=== PATIENT | male | born 1995 | race Caucasian/White ===

== ENCOUNTER 2020-09-20 10:33 | Emergency (ER) | payer OTHER, SELFPAY ==
[2020-09-20 11:06] VITALS: BP 114/53; PULSE 86; RESP 16; TEMP 36.7; O2SAT 99; BMI 24.9
--- NOTE | 2020-09-20 11:09 | XR_ITS ---
EXAMINATION: XR CHEST CLINICAL INFORMATION: Covid Symptoms. COMPARISON: None TECHNIQUE: Frontal view of the chest was obtained. FINDINGS: No significant abnormality is noted involving the heart, lungs, mediastinum, bony thorax or soft tissues. XR/XR chest 1V IMPRESSION: Unremarkable chest examination.
--- NOTE | 2020-09-20 11:20 | ED_ITS ---
HPI - URI/Sore Throat General Chief Complaint: Upper Respiratory Symptoms <VINCE Goncalves Last Filed: 09/20/20 11:49> Stated Complaint: covid symptoms,chest pain <VINCE Goncalves Last Filed: 09/20/20 11:49> Time Seen by Provider: 09/20/20 11:09 <VINCE Goncalves Last Filed: 09/20/20 11:49> Source: patient <VINCE Goncalves Last Filed: 09/20/20 11:49> Mode of arrival: ambulatory <VINCE Goncalves Last Filed: 09/20/20 11:49> Limitations: no limitations <VINCE Goncalves Last Filed: 09/20/20 11:49> History of Present Illness HPI Narrative: 25yoM c PMHx of asthma presenting to the ED with complaints body aches, chills, sore throat, productive cough and shortness of breath with associated epigastric abdominal pain for the past 3 days worse today. Denies recent travel or sick contacts. Denies any other symptoms complaints or concerns at this ti me. <VINCE Goncalves Last Filed: 09/20/20 11:49> Related Data Home Medications: Previous Rx's Medication Instructions Recorded acetaminophen [Tylenol] 650 mg PO Q6H PRN #10 tab 09/20/20 albuterol sulfate 1 inh INHALATION QID PRN #8.5 g 09/20/20 azithromycin See Rx Instructions .ROUTE 09/20/20 .COMPLEX #3 tab cyclobenzaprine 10 mg PO TID PRN #10 tab 09/20/20 prednisone 40 mg PO DAILY 5 Days #10 tab NS 09/20/20 <VINCE Goncalves Last Filed: 09/20/20 11:49> Allergies/Adverse Reactions: Allergies Allergy/AdvReac Type Severity Reaction Status Date / Time No Known Allergies Allergy Unverified 08/05/20 16:34 <VINCE Goncalves Last Filed: 09/20/20 11:49> Review of Systems Review of Systems: Constitutional : No Fever, + Chills, No fatigue, No Malaise ENT/Mouth : + sore throat, No runny nose Eyes: No Discharge Cardiovascular : No Chest Pain, + SOB Respiratory : + Cough, + Sputum, No Wheezing, No Smoke Exposure, No Dyspnea Gastrointestinal : No Nausea, No Vomiting, No Diarrhea Genitourinary : No irregular bleeding, No Dysuria, No Urinary Frequency, No Hematuria, No Urinary Incontinence, No Urgency, No Flank Pain, Musculoskeletal : No Myalgia Skin : No rash Neuro : No Headache <VINCE Goncalves - Last Filed: 09/20/20 11:49> Yes all other systems are reviewed and are negative <VINCE Goncalves - Last Filed: 09/20/20 11:49> FORMERLY [facility] Past Medical History Attestation statement: The following information was validated with the patient. <VINCE Goncalves - Last Filed: 09/20/20 11:49> Medical History: Medical History Asthma <VINCE Goncalves - Last Filed: 09/20/20 11:49> Social History Social History: Social History Smoking Status: Current some day smoker Use of substances other than those prescribed or required for medical reasons: No Advance Directives: No Advance Directives Information Provided: No <VINCE Goncalves - Last Filed: 09/20/20 11:49> Physical Exam Vital Signs: Vital Signs: Vital Signs Temp Pulse Resp BP Pulse Ox 09/20/20 11:06 98.1 F 86 16 114/53 L 99 Body Mass Index 24.9 vital signs have been reviewed as normal and appeared to be correct. Blood pressure normal. Heart rate normal. Respiration rate normal. Temperature normal. Oxygen saturation normal. <VINCE Goncalves - Last Filed: 09/20/20 11:49> Vital Signs: Vital Signs Temp Pulse Resp BP Pulse Ox 09/20/20 11:06 98.1 F 86 16 114/53 L 99 Body Mass Index 24.9 <Adan Gifford MD - Last Filed: 10/01/20 01:21> Appearance: Alert. Oriented X3. No acute distress. Head: Normal external exam. Normocephalic. Eyes: PERRLA. EOMI. Conjunctiva and sclera normal. Eyelids normal. ENT: EAC normal. TM's Normal. Pharynx normal. Uvula midline. Moist mucous membranes. No trismus noted. No drooling noted. No muffled voice noted. Neck: Normal inspection. Neck supple. FROM. No meningeal signs. CVS: Normal heart rate and rhythm. Heart sound normal. No murmurs noted. Pulses normal throughout. Respiratory: No respiratory distress. Painless inspiration. Breath sounds normal. No wheezes/rales/rhonchi noted. Chest nontender. No accessory muscle usage noted or decreased air movement noted. Back: Full range of motion noted. Skin: Skin warm and dry. Normal skin color. Normal skin turgor. No rashes/lesions/lacerations noted. Extremities: Extremities exhibit normal range of motion. Extremities nontender. Neuro: Oriented X 3. No motor deficit. No sensory deficit. Reflexes normal. <VINCE Goncalves - Last Filed: 09/20/20 11:49> Course Course Course Narrative: 25yoM c PMHx of asthma presenting to the ED with complaints body aches, chills, sore throat, productive cough and shortness of breath with associated epigastric abdominal pain for the past 3 days worse today. - We will obtain a COVID swab and a chest x-ray and if within normal limits the chest x-ray will DC home with antibiotics and symptomatic treatment along with instructions to self isolate and to return if any new or worsening symptoms to follow-up with primary care provider. Patient understands agrees the plan. <VINCE Goncalves - Last Filed: 09/20/20 11:49> I have reviewed the chart <Adan Gifford MD - Last Filed: 10/01/20 01:21> MDM - URI/Sore Throat Medical Records Attestation: I reviewed the patient's medical records. <VINCE Goncalves - Last Filed: 09/20/20 11:49> Lab Data Labs: Lab Results 09/20/20 Range/Units 11:15 COVID-19 PCR NOT DETECTED (NOT DETECTED) <VINCE Goncalves - Last Filed: 09/20/20 11:49> Lab Results 09/20/20 Range/Units 11:15 COVID-19 PCR NOT DETECTED (NOT DETECTED) <Adan Gifford MD - Last Filed: 10/01/20 01:21> Imaging Data Chest x-ray: Attestation: I personally reviewed and interpreted this imaging study as follows: <VINCE Goncalves - Last Filed: 09/20/20 11:49> Radiologist's impression: FINDINGS: No significant abnormality is noted involving the heart, lungs, mediastinum, bony thorax or soft tissues. XR/XR chest 1V IMPRESSION: Unremarkable chest examination. <VINCE Goncalves - Last Filed: 09/20/20 11:49> Discharge Plan Discharge Clinical Impression: Upper respiratory infection <VINCE Goncalves - Last Filed: 09/20/20 11:49> Patient Disposition: Home, Self-Care <VINCE Goncalves - Last Filed: 09/20/20 11:49> Instructions: COVID-19 (Coronavirus Disease 2019) (ED) <VINCE Goncalves - Last Filed: 09/20/20 11:49> Additional Instructions: Based on your symptoms and history we have sent a COVID-19. Although your RESULT IS PENDING at this time. RESULTS should return within 72 hours. At this time you will be contacted with either NEGATIVE OR POSITIVE results. -Please wait until we contact you for your results. At this time you will be okay for discharge. Please plan for self quarantine for up to 14 days. Do not expose yourself to others. You may not go to work. If testing does come back negative you may return to activities as long as you are no longer having any symptoms for at least 3 days. Please continue to follow cold instructions and wash your hands frequently. You may take Tylenol as directed on the bottle for pain or fever. Patient seen in the emergency department on 09/20/2020 and should be excused from work until negative test results AND until 72 hours without any symptoms AND at least 10 days have passed since symptoms first appeared or since last exposure to COVID-19 positive patient CDC Guidelines for home isolation: - Stay away from others - WEAR A MASK if you are sick AND STAY HOME - Cover your mouth and nose with a tissue when you cough or sneeze. Dispose of tissues in a lined trash can and wash your hands immediately with soap and water for at least 20 seconds. If soap and water are not available, clean hands with alcohol-based hand geologic technician that contains at least 60% alcohol. - Clean your hands often with soap and water for at least 20 seconds - Avoid touching your eyes, nose and mouth with unwashed hands - Do not share dishes, drinking glasses, cups, eating utensils, towels, or bedding with other people in your home. After using these items, wash them thoroughly with soap and water or put in the wool tamper. - Clean high-touch surfaces in your isolation area ( sick room and bathroom) every day; let a caregiver clean and disinfect high-touch surfaces in other areas of the home. Clean the area or item with soap and water or another detergent if it is dirty. Then, use a household disinfectant. - Limit contact with pets and animals: If you must care for a pet, wash your hands before and after interacting with them). <VINCE Goncalves - Last Filed: 09/20/20 11:49> Prescriptions: New azithromycin 500 mg tablet See Rx Instructions .ROUTE .COMPLEX Qty: 3 RF: 0 albuterol sulfate 90 mcg/actuation HFA aerosol inhaler 1 inh inhalation QID PRN (Reason: shortness of breath or wheezing) Qty: 8.5 RF: 0 cyclobenzaprine 10 mg tablet 10 mg PO TID PRN (Reason: muscle spasm) Qty: 10 RF: 0 acetaminophen [Tylenol] 325 mg tablet 650 mg PO Q6H PRN (Reason: fever or pain) Qty: 10 RF: 0 prednisone 20 mg tablet 40 mg PO DAILY 5 Days Qty: 10 RF: 0 <VINCE Goncalves - Last Filed: 09/20/20 11:49> Referrals: Josefa Thornton DO [Primary Care Provider] - 2 days <VINCE Goncalves - Last Filed: 09/20/20 11:49> Stand Alone Forms: Work/School Release <VINCE Goncalves - Last Filed: 09/20/20 11:49> Interventions: ED Discharge Assessment Last Done: 09/20/20 11:59 <VINCE Goncalves - Last Filed: 09/20/20 11:49> Discharge Date/Time: 09/20/20 11:59 <VINCE Goncalves - Last Filed: 09/20/20 11:49> Print Language: Icelandic <VINCE Goncalves - Last Filed: 09/20/20 11:49>
== END 2020-09-20 11:59 | disposition home or self-care (01) ==
PROVIDERS: Physician Assistant Medical; Emergency Provider Emergency Medicine; PCP Internal Medicine
DX: B34.9 Viral infection, unspecified (principal); R05 Cough; M79.10 Myalgia, unspecified site; R10.13 Epigastric pain; F17.200 Nicotine dependence, unspecified, uncomplicated; Z71.6 Tobacco abuse counseling; Z20.828 Contact with and (suspected) exposure to other viral communicable diseases
CPT/HCPCS: 71045; 99283; U0003

== ENCOUNTER 2020-12-14 13:51 | Outpatient (REF) | payer OTHER, SELFPAY | END 2020-12-14 13:52 | disposition home or self-care (01) | LOC: HO.LAB 13:51 | PROVIDERS: PCP Internal Medicine; Visit Provider Internal Medicine | DX: Z20.822 Contact with and (suspected) exposure to COVID-19 (principal) | CPT/HCPCS: 36415; C9803; U0003 ==

== ENCOUNTER 2021-01-21 12:58 | Outpatient (REF) | payer OTHER, SELFPAY | END 2021-01-21 12:59 | disposition home or self-care (01) | LOC: HO.LAB 12:58 | PROVIDERS: Visit Provider Internal Medicine | DX: Z20.822 Contact with and (suspected) exposure to COVID-19 (principal) | CPT/HCPCS: 36415; C9803; U0003; U0005 ==

== ENCOUNTER 2021-02-07 19:25 | Emergency (ER) | payer OTHER, SELFPAY ==
[2021-02-07 19:43] VITALS: BP 142/59; PULSE 73; RESP 14; TEMP 36.8; O2SAT 96; BMI 26.0
--- NOTE | 2021-02-07 20:17 | ED.ANIMALBIT ---
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 His tetanus is up-to-date. Unknown dog. Unknown rabies status. Related Data Previous Rx's Medication Instructions Recorded acetaminophen [Tylenol] 650 mg PO Q6H PRN #10 tab 09/20/20 albuterol sulfate 1 inh INHALATION QID PRN #8.5 g 09/20/20 azithromycin See Rx Instructions .ROUTE 09/20/20 .COMPLEX #3 tab cyclobenzaprine 10 mg PO TID PRN #10 tab 09/20/20 prednisone 40 mg PO DAILY 5 Days #10 tab NS 09/20/20 amoxicillin-pot clavulanate 1 tab PO BID #14 tab 02/07/21 [Augmentin] Allergies Allergy/AdvReac Type Severity Reaction Status Date / Time No Known Allergies Allergy Verified 02/07/21 19:43 Review of Systems Review of Systems: Yes all other systems are reviewed and are negative Constitutional: Constitutional: Reports no additional constitutional complaints, Denies body ache(s), Denies chills, Denies fever(s), Denies headache(s) and Denies weakness Eyes: Eyes: Reports no additional eye complaints and Denies change in vision ENT: Reports system reviewed and no additional complaints, except as documented, Denies dizziness, Denies headache(s), Denies nasal congestion, Denies nasal discharge and Denies neck pain Cardiovascular: Cardiovascular: Reports no additional cardiovascular complaints, Denies chest pain, Denies leg edema and Denies dyspnea Respiratory: Respiratory: Reports no additional respiratory complaints, Denies cough and Denies dyspnea Gastrointestinal: Gastrointestinal: Reports no additional gastrointestinal complaints, Denies abdominal pain, Denies diarrhea, Denies nausea and Denies vomiting Genitourinary: Genitourinary: Denies urinary incontinence Musculoskeletal: Musculoskeletal: Reports no additional musculoskeletal complaints, Denies back pain, Denies arthralgias, Denies joint swelling, Denies neck pain, Denies numbness and Denies tingling Integumentary/Breasts: Skin/Breast: Reports system reviewed and no additional complaints, except as docu and Denies rash Comments: Puncture wound left leg Neurologic: Reports system reviewed and no additional complaints, except as documented, Denies Abnormal speech present, Denies dizziness, Denies headache(s), Denies numbness, Denies tingling and Denies weakness PMFSH Past Medical History Attestation statement: The following information was validated with the patient. Source: old records reviewed and nursing notes reviewed Medical History Asthma Social History Social History Smoking Status: Current some day smoker Advance Directives: No Advance Directives Information Provided: Yes Physical Exam Vital Signs: Vital Signs: Last Vital Signs Temp 98.2 F 02/07/21 19:43 Pulse 73 02/07/21 19:43 Resp 14 02/07/21 19:43 BP 142/59 H 02/07/21 19:43 Pulse Ox 96 02/07/21 19:43 Body Mass Index 26.0 Const: General: cooperative, healthy appearing, comfortable and no acute distress Orientation/consciousness: patient oriented x3 Limitations: no limitations HENMT: Head: Yes normal to inspection Ears: hearing grossly normal bilaterally General nose exam: Normal external nose present Face and sinus: Yes normal facial exam Mouth: Normal oral and palatal mucosa present Throat: Yes posterior oropharynx normal Eyes: General: appearance normal, both eyes and all related structures Pupils: Equal, round and reactive pupils present Neck: Neck: Yes normal visual inspection Chest: Chest palpation & inspection: normal inspection of the chest Resp: Effort & Inspection: normal respiratory effort Auscultation: clear to auscultation bilaterally Cardio: Rate: regular rate Rhythm: regular rhythm Peripheral pulses: Peripheral pulses 2+ throughout GI: Inspection: Yes normal to inspection Palpation (GI): Soft to palpation and nontender Auscultation: normal bowel sounds Back/Spine/Pelvis: Thoracic/Lumbar Spine: thoracic and lumbar spine normal to inspection Skin: General skin exam: no rashes or lesions noted Neuro: General: patient oriented x3, no focal motor deficits and normal sensation to monofilament Cranial nerves: Yes Equal, round and reactive pupils present Cognition (Neuro): normal cognition Speech: No Abnormal speech present Gait exam (Neuro): Normal gait present Motor exam (neuro): 5/5 motor strength present throughout Extrem: Other: To the posterior left calf there are several puncture wounds. Bleeding is controlled. No obvious foreign body. The calf is is soft with compressible compartments General: Yes normal to inspection Course Course Course Narrative: Dog bite to left calf, unknown rabies status. Will need rabies series initiated as well is hyperrab. Will start on pptx antibiotics. 2044-injected some of the hyperab into the puncture wound site. Wound care was given and a nonstick dressing with a wrap was placed around the wound. Reviewed worrisome signs and symptoms of when to return to the emergency department. Comfortable discharge home. Discharge Plan Discharge Clinical Impression: Bite by animal Patient Disposition: Home, Self-Care Instructions: Animal Bite (ED) Additional Instructions: watch for signs of infection such as redness, drainage, fever greater than 101 Next dose of antibiotic tomorrow morning Follow rabies schedule Prescriptions: New amoxicillin-pot clavulanate [Augmentin] 875-125 mg tablet 1 tab PO BID Qty: 14 RF: 0 No Action azithromycin 500 mg tablet See Rx Instructions .ROUTE .COMPLEX Qty: 3 RF: 0 albuterol sulfate 90 mcg/actuation HFA aerosol inhaler 1 inh inhalation QID PRN (Reason: shortness of breath or wheezing) Qty: 8.5 RF: 0 cyclobenzaprine 10 mg tablet 10 mg PO TID PRN (Reason: muscle spasm) Qty: 10 RF: 0 acetaminophen [Tylenol] 325 mg tablet 650 mg PO Q6H PRN (Reason: fever or pain) Qty: 10 RF: 0 prednisone 20 mg tablet 40 mg PO DAILY 5 Days Qty: 10 RF: 0 Referrals: Josefa Thornton DO [Primary Care Provider] - 2 days Stand Alone Forms: Work/School Release
[2021-02-07] MEDS: Rabies Immune Globulin/PF 1,500 UNIT/5 ML VIAL 1741.8 UNIT IM (20:32)
[2021-02-07] MEDS: Amoxicillin/Potassium Clav 875 MG TABLET PO (20:32)
[2021-02-07] MEDS: Rabies Vaccine (PCEC)/PF 1 ML VIAL IM (20:33)
== END 2021-02-07 20:55 | disposition home or self-care (01) ==
PROVIDERS: Emergency Provider Internal Medicine; PCP Internal Medicine
DX: S81.852A Open bite, left lower leg, initial encounter (principal); W54.0XXA Bitten by dog, initial encounter; Y93.89 Activity, other specified; Y92.096 Garden or yard of other non-institutional residence as the place of occurrence of the external cause; Y99.0 Civilian activity done for income or pay
CPT/HCPCS: 90375; 90471; 90675; 96372; 99284

== ENCOUNTER 2021-02-10 07:29 | Outpatient (REF) | payer OTHER, SELFPAY | END 2021-02-10 07:30 | disposition home or self-care (01) | LOC: HO.MDS 07:29 | PROVIDERS: PCP Internal Medicine; Visit Provider Nurse Practitioner Family | DX: Z29.14 Encounter for prophylactic rabies immune globulin (principal); S80.872D Other superficial bite, left lower leg, subsequent encounter; W54.0XXD Bitten by dog, subsequent encounter; Z20.3 Contact with and (suspected) exposure to rabies | CPT/HCPCS: 90471; 90675 ==

== ENCOUNTER 2021-02-14 07:28 | Outpatient (REF) | payer OTHER, SELFPAY | END 2021-02-14 07:29 | disposition home or self-care (01) | LOC: HO.MDS 07:28 | PROVIDERS: PCP Internal Medicine; Visit Provider Nurse Practitioner Family | DX: Z29.14 Encounter for prophylactic rabies immune globulin (principal); S81.852D Open bite, left lower leg, subsequent encounter; W54.0XXD Bitten by dog, subsequent encounter; Z20.3 Contact with and (suspected) exposure to rabies | CPT/HCPCS: 90675; 96372 ==

== ENCOUNTER 2021-02-21 07:34 | Outpatient (REF) | payer OTHER, SELFPAY | END 2021-02-21 07:35 | disposition home or self-care (01) | LOC: HO.MDS 07:34 | PROVIDERS: PCP Internal Medicine; Visit Provider Nurse Practitioner Family | DX: Z29.14 Encounter for prophylactic rabies immune globulin (principal); S81.852D Open bite, left lower leg, subsequent encounter; W54.0XXD Bitten by dog, subsequent encounter; Z20.3 Contact with and (suspected) exposure to rabies | CPT/HCPCS: 90471; 90675 ==

== ENCOUNTER 2021-07-21 12:33 | Outpatient (REF) | payer OTHER, SELFPAY | END 2021-07-21 12:34 | disposition home or self-care (01) | LOC: HO.LAB 12:33 | PROVIDERS: PCP Internal Medicine; Visit Provider Internal Medicine | DX: Z20.822 Contact with and (suspected) exposure to COVID-19 (principal) | CPT/HCPCS: C9803; U0003; U0005 ==